=== PATIENT | male | born 1990 | race Caucasian/White ===

== ENCOUNTER 2021-01-19 16:06 | Emergency (ER) | payer MEDICAID | END 2021-01-19 17:02 | disposition left against medical advice (07) | LOC: ER 16:06 | DX: Z53.21 Procedure and treatment not carried out due to patient leaving prior to being seen by health care provider (principal) ==

== ENCOUNTER 2021-05-24 04:13 | Inpatient (IN) | payer MEDICAID ==
[~2021-05-24] VITALS: Ht 190.5 cm; Wt 149.7 kg
[2021-05-24] MEDS ORDERED: ONDANSETRON HCL 4MG/2ML INJ IV STA (06:30)
[2021-05-24] MEDS ORDERED: MORPHINE SULFATE 4 MG/ML CPJ (NOT FOR IM USE) IV STA (06:30)
[2021-05-24 06:39] LABS: BASOPHILS % 0.8 % (0.0-2.0); MEAN CORPUSCULAR HEMOGLOBIN 28.1 pg (28.0-32.0); MEAN CORPUSCULAR VOLUME 80.7 fL (80.0-94.0); MEAN PLATELET VOLUME 9.1 fl (7.4-10.4); MONOCYTES % 8.1 % (2.0-8.0); NEUTROPHILS % 58.1 % (40.0-76.0); PLATELET 175 x1000/uL (130-400); RED BLOOD CELL COUNT 5.33 mill/uL (4.7-6.1); RED CELL DISTRIBUTION WIDTH 13.8 % (11.6-14.6)
[2021-05-24 06:42] LABS: CHLORIDE 102 mEq/L (98-107)
[2021-05-24 06:47] LABS: ETHANOL BLOOD < 10 mg/dL
[2021-05-24] MEDS ORDERED: NITROGLYCERIN OINT 1GM/INCH UDPKT TD ONE (07:00)
[2021-05-24 08:53] LABS: PARTIAL THROMBOPLASTIN TIME 26.7 sec (23.4-31.0); PROTHROMBIN TIME 10.3 sec (9.6-11.0)
[2021-05-24 09:11] LABS: *BARBITURATES SCREEN URINE NEGATIVE (NEGATIVE); *BENZODIAZEPINES SCREEN URINE NEGATIVE (NEGATIVE); *COCAINE SCREEN URINE NEGATIVE (NEGATIVE)
[2021-05-24 09:12] LABS: *AMPHETAMINES SCREEN URINE NEGATIVE (NEGATIVE); CANNABINOID URINE SCREEN PRESUMTIVE POSITIVE (NEGATIVE); METHADONE URINE SCREEN NEGATIVE (NEGATIVE); OPIATES URINE SCREEN NEGATIVE (NEGATIVE); PHENCYCLIDINE URINE SCREEN NEGATIVE (NEGATIVE)
[2021-05-24] MEDS: ENOXAPARIN 150MG/ML SYR SUBCUT NR ×2 (10:07→10:09)
[2021-05-24] MEDS ORDERED: CLONIDINE 0.1MG TABLET PO PRN (10:30)
[2021-05-24] MEDS ORDERED: HYDROCODONE/ACETAMINOPHEN 5/325MG TABLET PO PRN (10:30)
[2021-05-24] MEDS ORDERED: ONDANSETRON HCL 4MG/2ML INJ IV PRN (10:30)
[2021-05-24] MEDS ORDERED: ACETAMINOPHEN 325MG TABLET PO PRN ×2 (10:30)
[2021-05-24] MEDS ORDERED: MORPHINE SULFATE 2 MG/ML CPJ (NOT FOR IM USE) IV PRN (10:30)
[2021-05-24] MEDS ORDERED: LORAZEPAM 0.5MG TABLET PO PRN (10:30)
[2021-05-24] MEDS ORDERED: NITROGLYCERIN 0.4MG TABLET SL SL PRN (10:30)
[2021-05-24] MEDS ORDERED: DOCUSATE SODIUM 100MG CAPSULE PO PRN (10:30)
[2021-05-24] MEDS ORDERED: IPRATROPIUM/ALBUTEROL 0.5-3(2.5)MG/3ML NEB HHN PRN (10:30)
[2021-05-24] MEDS ORDERED: NALOXONE HCL 0.4MG/ML VIAL IV PRN (10:45)
[2021-05-24 11:40] LABS: HEPATITIS B SURFACE ANTIGEN NEGATIVE
[2021-05-24 12:09] LABS: HEPATITIS A AB IGM NEGATIVE (NEGATIVE)
[2021-05-24] MEDS ORDERED: REGADENOSON 0.4 MG/5 ML IV ONE (13:45)
[2021-05-24] MEDS: CARVEDILOL 6.25 MG TABLET PO SCH ×2 (14:42→21:35)
[2021-05-24] MEDS: AMLODIPINE 2.5MG TABLET PO SCH (14:43)
[2021-05-24] MEDS ORDERED: DEXTROSE 50% WATER 50ML SYRINGE IV PRN (16:30)
[2021-05-24 17:34] VITALS: BP 149/96
[2021-05-24] MEDS ORDERED: LISI10TA26 PO (19:12)
[2021-05-24] MEDS ORDERED: METF-873 PO (19:12)
[2021-05-24] MEDS ORDERED: GABA-290 PO (19:13)
[2021-05-24] MEDS ORDERED: METH-375 PO (19:14)
[2021-05-24] MEDS ORDERED: AMLO-78 MT (19:20)
[2021-05-24 20:00] VITALS: BP 150/112
[2021-05-24] MEDS: BLOOD SUGAR DIAGNOSTIC STRIP TEST SCH (21:02)
[2021-05-24] MEDS: INSULIN LISPRO 100 UNITS/ML SUBCUT SCH (21:35)
[2021-05-25] VITALS (8 sets, daily range): BP systolic 144–158; BP diastolic 88–108
[2021-05-25 07:19] LABS: BASOPHILS % 0.7 % (0.0-2.0); EOSINOPHILS % 3.6 % (0.0-5.0); HEMATOCRIT. 41.5 % (42.0-52.0); HEMOGLOBIN. 14.7 g/dL (14.0-18.0); LYMPHOCYTES % 26.9 % (20.0-50.0); MEAN CORPUSCULAR HEMOGLOBIN 28.3 pg (28.0-32.0); MEAN CORPUSCULAR VOLUME 80.1 fL (80.0-94.0); MEAN PLATELET VOLUME 9.2 fl (7.4-10.4); MONOCYTES % 6.8 % (2.0-8.0); PLATELET 180 x1000/uL (130-400); RED BLOOD CELL COUNT 5.18 mill/uL (4.7-6.1); RED CELL DISTRIBUTION WIDTH 13.7 % (11.6-14.6)
[2021-05-25] MEDS: BLOOD SUGAR DIAGNOSTIC STRIP TEST SCH ×3 (07:27→17:09)
[2021-05-25 07:45] LABS: CHLORIDE 101 mEq/L (98-107)
[2021-05-25] MEDS: INSULIN LISPRO 100 UNITS/ML SUBCUT SCH ×3 (07:50→17:39)
[2021-05-25] MEDS: CARVEDILOL 6.25 MG TABLET PO SCH (08:33)
[2021-05-25] MEDS: AMLODIPINE 2.5MG TABLET PO SCH ×2 (08:33→16:00)
[2021-05-25] MEDS ORDERED: REGADENOSON 0.4 MG/5 ML IV ONE (14:20)
== END 2021-05-25 19:30 | disposition left against medical advice (07) | DRG 203 ==
LOC: ER 04:13 → 6WST 08:53 → EDBEDREQ 09:14 → EDBEDREQTM 09:14 → ENRESERV 15:35
PROVIDERS: ADMIT Internal Medicine; ATTEND Internal Medicine
DX: M94.0 Chondrocostal junction syndrome [Tietze] (principal); I24.9 Acute ischemic heart disease, unspecified; E11.65 Type 2 diabetes mellitus with hyperglycemia; K75.9 Inflammatory liver disease, unspecified; E87.1 Hypo-osmolality and hyponatremia; Z68.41 Body mass index [BMI] 40.0-44.9, adult; D72.821 Monocytosis (symptomatic); E78.5 Hyperlipidemia, unspecified; F12.90 Cannabis use, unspecified, uncomplicated; Z20.822 Contact with and (suspected) exposure to COVID-19; F17.200 Nicotine dependence, unspecified, uncomplicated; I10 Essential (primary) hypertension; R74.01 Elevation of levels of liver transaminase levels; E66.9 Obesity, unspecified; Z82.49 Family history of ischemic heart disease and other diseases of the circulatory system; I25.2 Old myocardial infarction; Z88.2 Allergy status to sulfonamides; Z88.8 Allergy status to other drugs, medicaments and biological substances; Z79.4 Long term (current) use of insulin; Z71.3 Dietary counseling and surveillance
CPT/HCPCS: 36415; 71045; 76700; 78452; 80048; 80053; 80061; 80076; 80305; 80320; 82962; 83036; 83880; 84443; 84484; 85025; 85379; 86705; 86709; 86803; 87340; 87426; 93005; 93017; 93306; 99291; A9500; J1650; J1815; J2270; J2405; J2785; G0480